=== PATIENT | male | born 1965 | race Two or more races ===

== ENCOUNTER 2024-07-26 15:18 | Emergency (ER) | payer MEDICARE, MEDICAID, SELFPAY ==
[2024-07-26 15:38] VITALS: BP 177/95; PULSE 94; RESP 18; TEMP 37.9; O2SAT 95; BMI 30.7
--- NOTE | 2024-07-26 15:45 | XR_ITS ---
Examination: CT brain head without contrast. 2-D sagittal coronal reconstructions Date and time of exam:July 26, 2024 1622 hours Comparison December 21, 2018 INDICATIONS: Ground-level fall yesterday with intravenous head, head pain CTDI: vol (mGy):54.8 DLP: (mGycm):1071 Technique: Multiple CT axial sections of the brain have been obtained, 5 mm slice thickness. Contrast has not been administered. 2-D sagittal, coronal reconstructions have been obtained Low dose protocols were performed. One or more of the following dose reduction techniques were used; automated exposure control, adjustment of the mA and/or KV according to patient size, use of iterative reconstruction technique. Findings: No significant ventricular enlargement. 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 No mass effect or midline shift Basal cisterns are not remarkable. Fourth ventricle is midline. Cranial vault intact. Impression: No interval acute hemorrhage, mass effect or midline shift
--- NOTE | 2024-07-26 15:45 | XR_ITS ---
Examination: AP lateral chest 2 views Technique: AP portable lateral chest 2 views Date and time: July 26, 2024 1706 hrs. Comparison July 21, 2018 Injury to the head 1 day ago with chest pain Findings: Mild prominence left ventricle Mild elevation right hemidiaphragm. Blunting of both costophrenic angles Pneumonia in the posterior basal segment left lower lobe obscuring detail posterior left hemidiaphragm No geovanna pulmonary edema No pneumothorax Clavicles ribs thoracic vertebral bodies appear intact Impression: No pneumothorax Pneumonia posterior basal segment left lower lobe Small bilateral pleural effusions
--- NOTE | 2024-07-26 15:45 | EKG_ITS ---
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
--- NOTE | 2024-07-26 15:45 | XR_ITS ---
Examination: CT cervical spine without contrast 2-D sagittal reconstructions 2-D coronal reconstructions 3-D reconstructions. Exam date and time:July 26, 2024 1622 hours INDICATIONS: Ground-level fall today with injury to the neck, neck pain CTDI:vol (mGy) 10.4 DLP: (mGycm) 219 Technique: Multiple 2 mm axial sections of the cervical spine have been obtained. The coronal and sagittal reconstructions have been obtained. 3-D reconstructions have been obtained. Low dose protocols were performed. One or more of the following dose reduction techniques were used; automated exposure control, adjustment of the mA and/or KV according to patient size, use of iterative reconstruction technique. Findings: Axial sections demonstrate intact base of the skull. C1 exhibit satisfactory relationship to the odontoid. No acute cervical vertebral body fracture seen. Alignment posterior spinous processes satisfactory. Impression: No acute cervical fracture.
--- NOTE | 2024-07-26 15:46 | EDRME_ITS ---
Rapid Medical Screening Exam [facility] Arrival date/time: 07/26/24 15:18 This is a 59-year-old male that comes to the emergency room with complaints of dizziness. Per patient's patient had a fall while he was at [employer] yesterday. Patient felt very dizzy and fell backwards. Patient hit the back of his head. Patient now has neck pain and head pain. Patient continues to feel dizzy today and also complaining of some chest pain. 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 As a result patientn dysarthria. Patient does take Plavix. Patient has a history of high blood pressure, diabetes, and hyperlipidemia. Patient also has depression. Patient has no focal deficits. Patient denies loss of consciousness with the fall. I have greeted and performed a focused initial assessment of this patient. Initial appropriate labs ordered at this time. A comprehensive ED assessment and evaluation of the patient and analysis of all test and completion of medical decision making process will be conducted by additional ED provider. Chief Complaint: Head Injury Time Seen by Provider: 07/26/24 15:25 Vital signs: Vital Signs Temperature 100.2 F 07/26/24 15:38 Pulse Rate 94 07/26/24 15:38 Respiratory Rate 18 07/26/24 15:38 Blood Pressure 177/95 H 07/26/24 15:38 Pulse Oximetry (%) 95 07/26/24 15:38 Oxygen Delivery Method Room Air 07/26/24 15:38
[2024-07-26 16:32] LABS: Basophils % (Auto) 0 % (0-2.5); Eosinophils % (Auto) 0 % (0-10); Hematocrit 34.3 % (41.0-53.0); Hemoglobin 11.8 g/dL (13.5-16.0); Immature Granulocytes % (Auto) 0 % (0-0); Immature Granulocytes Auto 0.01 Thou/mm3 (0.00-0.00); Lymphocytes # (Auto) 0.8 Thou/mm3 (1.0-4.8); Lymphocytes % (Auto) 13 % (10-50); Mean Corpuscular HGB Conc 34.4 g/dl (31.0-37.0); Mean Corpuscular Hemoglobin 29.1 pg (25.0-35.0); Mean Corpuscular Volume 85 fL (80-100); Monocytes # (Auto) 0.7 Thou/mm3 (0.0-0.8); Monocytes % (Auto) 11 % (0-12); Neutrophils # (Auto) 4.4 Thou/mm3 (1.8-7.7); Neutrophils % (Auto) 75 % (37-80); Nucleated Red Blood Cell % 0 /100 WBC (0); Platelet Count 259 Thou/mm3 (140-440); RDW Standard Deviation 38.9 fL (35.1-43.9); Red Blood Count 4.06 Miln/mm3 (4.50-5.90); White Blood Count 5.8 Thou/mm3 (3.8-10.6)
[2024-07-26 16:46] LABS: B-Type Natriuretic Peptide 83 pg/mL (0-100)
[2024-07-26 16:47] LABS: Alanine Aminotransferase 48 U/L (10-49); Albumin, Serum 3.8 gm/dL (3.5-5.0); Albumin/Globulin Ratio 1.3 (1.2-2.2); Alkaline Phosphatase 160 U/L (46-116); Anion Gap 9 (7-16); Aspartate Amino Transferase 39 U/L (0-34); BUN/Creatinine Ratio 12 Ratio (12-20); Bilirubin,Total 0.3 mg/dL (0.3-1.2); Blood Urea Nitrogen 22 mg/dL (9-23); Calcium 8.7 mg/dL (8.3-10.6); Calcium (Corrected) 8.9 mg/dL (8.5-10.1); Carbon Dioxide 25.4 mMol/L (20.0-31.0); Chloride 102 mMol/L (98-107); Creatinine (Component) 1.8 mg/dL (0.6-1.3); Estimated Creatinine Clearance 46.6 mL/min (>60); Glucose 153 mg/dL (74-106); Osmolality,Calculated 278 (275-295); Potassium 4.2 mMol/L (3.4-5.1); Sodium 136 mMol/L (136-145); Total Protein 6.8 gm/dL (5.7-8.2); Troponin I 0.023 ng/mL (0.0-0.045); eGFR 43 See Note
--- NOTE | 2024-07-26 19:32 | PD.EDHEAD ---
ED Head Injury RME/HPI General Chief complaint: Head Injury Stated complaint: HEAD INJURY POST FALL YESTERDAY W/ CHEST PAIN Time Seen by Provider: 07/26/24 15:25 Arrival date/time: 07/26/24 15:18 RME / HPI RME / HPI Narrative: 07/26/24 15:18 This is a 59-year-old male that comes to the emergency room with complaints of dizziness. Per patient's patient had a fall while he was at [employer] yesterday. Patient felt very dizzy and fell backwards. Patient hit the back of his head. Patient now has neck pain and head pain. Patient continues to feel dizzy today and also complaining of some chest pain. 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 As a result patientn dysarthria. Patient does take Plavix. Patient has a history of high blood pressure, diabetes, and hyperlipidemia. Patient also has depression. Patient has no focal deficits. Patient denies loss of consciousness with the fall. I have greeted and performed a focused initial assessment of this patient. Initial appropriate labs ordered at this time. A comprehensive ED assessment and evaluation of the patient and analysis of all test and completion of medical decision making process will be conducted by additional ED provider. Dr. Abreu?s Main ED Evaluation: 59yo male with a history of CVA, HTN, HLD, DM presents to the ED for a chief complaint of a head injury. Patient states he was walking with his cane yesterday, reporting he felt dizzy and fell backwards, hitting his head on a chair. Patient denies any loss of consciousness. Patient reports having lower back pain. He denies any neck pain, chest pain, abdominal pain, extremity pain or any other associated symptoms. NKA. Patient is on Plavix. Related Data Home Medications ?Medication ?Instructions ?Recorded ?Confirmed clopidogrel 75 mg tablet (Plavix) 75 mg PO QDAY 09/02/18 07/19/23 sitagliptin phos 100 mg-metformin 100 - 1,000 mg PO QDAY 09/02/18 07/19/23 ER 1,000 mg tablet,extend rel 24h mp (Janumet XR) sertraline 25 mg tablet (Zoloft) 12.5 mg PO QDAY 11/07/18 07/19/23 atorvastatin 80 mg tablet 80 mg PO QDAY 12/22/18 07/19/23 dapagliflozin propanediol 5 mg mg 07/19/23 tablet (Farxiga) losartan 100 mg tablet 100 mg PO QDAY 07/19/23 07/19/23 metoprolol succinate 25 mg capsule 25 mg PO QDAY 07/19/23 07/19/23 sprinkle, ext. release 24 hr triamterene 75 1 tab PO QDAY 07/19/23 07/19/23 mg-hydrochlorothiazide 50 mg tablet Previous Rx's ?Medication ?Instructions ?Recorded aspirin 81 mg tablet,delayed 81 mg PO QDAY #30 tabs 11/03/18 release (Aspir-Low) acetaminophen 500 mg capsule 1,000 mg (2 x 500 mg) PO Q6H PRN 07/26/24 pain #30 caps Allergies Allergy/AdvReac Type Severity Reaction Status Date / Time No Known Allergies Allergy Verified 07/26/24 15:21 Review of Systems Review of Systems Systems Reviewed: All systems reviewed, normal except as documented Past Medical History Past Medical History NEUROLOGIC: Positive Neurological Disorders and Cerebrovascular Accident (X4 . WALKS WITH CANE, SLURRED SPEECH); Negative Seizures CARDIAC: Positive Cardiac Disorders, Hypercholesterolemia and Hypertension; Negative Congestive Heart Failure RESPIRATORY: Negative Chronic Obstructive Pulmonary Disease (COPD) GASTROINTESTINAL: Negative Gastrointestinal Disorders GENITOURINARY: Negative Genitourinary Disorders or Renal Disease MUSCULOSKELETAL: Positive Musculoskeletal Disorders (WALKS WITH CANE DUE TO CVA) ENDOCRINE: Positive Endocrine Disorders and Diabetes Mellitus Type 2; Negative Diabetes Mellitus Type 1 HEMATOLOGIC: Negative Blood Disorders PSYCHO/SOCIAL: Positive Depression OTHER HISTORY: Negative Falls (USES CANE), Blood Transfusions, Anesthesia Reactions, MRSA, Chicken Pox (UNKNOWN), Clostridium Difficile or Cancer Surgical History SURGICAL: Positive Abdominal Surgery Social History SMOKING STATUS: Never smoker SECOND HAND EXPOSURE: No SUBSTANCE USE: does not use ED Exam Narrative Physical exam: GENERAL APPEARANCE: alert and oriented x 4, well-developed, well-nourished, no acute distress VITALS: All vitals were reviewed and the pulse ox is 95% on room air, which is normal according to my interpretation. HEENT: Normocephalic, atraumatic; pupils equal, round, reactive to light; EOMI; mucous membranes pink, moist; oropharynx clear NECK: Supple LUNGS: CTABL; no wheezes, no rales, no rhonchi HEART: Regular rate, regular rhythm; normal S1, S2; no murmurs ABDOMEN: non distended; normal BS; soft, no tenderness, no guarding, no rebound; no masses, no organomegaly, no hernia BACK: no CVA tenderness EXTREMITIES: atraumatic; no edema NEUROLOGIC: awake; alert and oriented x4; cranial nerves II-XII grossly intact; left-sided facial droop, left arm paralysis PSYCHIATRIC: appropriate mood and affect SKIN: warm, dry, normal color; no rashes Course Course Course Narrative: CXR is ordered to r/o pneumothorax. Quality Measures none Orders Category Date Time Status EKG (ED ONLY) *Do not use* NOW Care 07/26/24 15:[address] cervical spine wo con Stat Exams 07/26/24 15:[address] head/brain wo con Stat Exams 07/26/24 15:45 Completed EKG (ED Only) Stat Exams 07/26/24 15:45 Draft XR chest 2V Stat Exams 07/26/24 15:45 Completed BNP [B-Type Natriuretic Peptide] Stat Lab 07/26/24 16:08 Completed CBC Stat Lab 07/26/24 16:08 Completed Comprehensive Metabolic Panel Stat Lab 07/26/24 16:08 Completed Troponin I Stat Lab 07/26/24 16:08 Completed Vital Signs Vital signs: Vital Signs Temperature 100.2 F 07/26/24 15:38 Pulse Rate 94 07/26/24 15:38 Respiratory Rate 18 07/26/24 15:38 Blood Pressure 177/95 H 07/26/24 15:38 Pulse Oximetry (%) 95 07/26/24 15:38 Oxygen Delivery Method Room Air 07/26/24 15:38 Head Injury MDM Narrative MDM Narrative:: Scribe Attestation: 07/26/24 Janki Gonzáles am scribing for and in the presence of Dr. Abreu. Patient data External records reviewed:: [facility] previous records (Per chart review, patient has no relevant previous ED visits.) Clinical information provided by:: patient Social determinants that could affect healthcare access:: none Patient has the following chronic illnesses:: DM, HTN, HLD How is presenting disease/condition affected by chronic disease/condition?: uneffected by Evaluation data The following diagnostics were reviewed and interpreted by me:: lab results, radiology exam(s) and EKG tracing(s) Lab and/or radiology exams considered but not ordered:: none Interpretation Summary: CBC is normal, Creatinine is 1.8, BNP is normal, Troponin is normal, according to my interpretation. CXR shows an elevated right hemidiaphragm, normal cardiac silhouette, no infiltrates, according to my interpretation. EKG done at 1550, NSR, rate of 86, left axis deviation, no ectopy, Q waves in lead III, avF, V1, and v2, no STEMI, according to my interpretation. ------- [facility] Report Signed Patient: STEVEN MOTA. Record#: [id number] Birthdate: 1965 Age/Sex: 59 / M Location: [facility] Attending Dr: Ordering Physician: Meenu Wilks NP Date of Service: 07/26/24 Procedure(s): CT head/brain wo con Accession Number(s): [id number] cc: Driss Murray MD; NO PRIMARY/FAMILY,PHYSICIAN; Meenu Wilks NP~ Examination: CT brain head without contrast. 2-D sagittal coronal reconstructions Date and time of exam:July 26, 2024 1622 hours Comparison December 21, 2018 INDICATIONS: Ground-level fall yesterday with intravenous head, head pain CTDI: vol (mGy):54.8 DLP: (mGycm):1071 Technique: Multiple CT axial sections of the brain have been obtained, 5 mm slice thickness. Contrast has not been administered. 2-D sagittal, coronal reconstructions have been obtained Low dose protocols were performed. One or more of the following dose reduction techniques were used; automated exposure control, adjustment of the mA and/or KV according to patient size, use of iterative reconstruction technique. Findings: No significant ventricular enlargement. 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 No mass effect or midline shift Basal cisterns are not remarkable. Fourth ventricle is midline. Cranial vault intact. Impression: No interval acute hemorrhage, mass effect or midline shift Dictated By: Driss Murray MD Signed By: <Electronically signed by Driss Murray MD in OV> 07/26/24 1479 [facility] Report Signed Patient: STEVEN MOTA Record#: [id number] Birthdate: 1965 Age/Sex: 59 / M Location: [facility] Attending Dr: Ordering Physician: Meenu Wilks NP Date of Service: 07/26/24 Procedure(s): CT cervical spine wo con Accession Number(s): [id number] cc: Driss Murray MD; NO PRIMARY/FAMILY,PHYSICIAN; Meenu Wilks NP~ Examination: CT cervical spine without contrast 2-D sagittal reconstructions 2-D coronal reconstructions 3-D reconstructions. Exam date and time:July 26, 2024 1622 hours INDICATIONS: Ground-level fall today with injury to the neck, neck pain CTDI:vol (mGy) 10.4 DLP: (mGycm) 219 Technique: Multiple 2 mm axial sections of the cervical spine have been obtained. The coronal and sagittal reconstructions have been obtained. 3-D reconstructions have been obtained. Low dose protocols were performed. One or more of the following dose reduction techniques were used; automated exposure control, adjustment of the mA and/or KV according to patient size, use of iterative reconstruction technique. Findings: Axial sections demonstrate intact base of the skull. C1 exhibit satisfactory relationship to the odontoid. No acute cervical vertebral body fracture seen. Alignment posterior spinous processes satisfactory. Impression: No acute cervical fracture. Dictated By: Driss Murray MD Signed By: <Electronically signed by Driss Murray MD in [place]> 07/26/24 2220 Medications / Prescriptions Medications or Prescriptions considered but not ordered:: none Medication administrations:: see above Consultations Consultation(s) initiated? (list below): No Diagnosis Differential diagnosis head injury: subdural hematoma and other (skull fracture, epidural hematoma, traumatic hemorrhage, parenchymal bleed) Most likely diagnosis given after review of the tests above:: see clinical impression below Admission Indicated Admission indicated?: not indicated Explain why admission is indicated or not indicated:: Admission is not indicated at this time. Patient referred to Dr. Murrieta, our internal medicine nurse on-call, due to his creatinine being 1.8. Admission Request Was there a request for admission?: No Disposition Plan Disposition Plan: Discharge Discharge Attestation Discharge Attestation: The patient and all family members were given an opportunity to ask questions and understood the discharge instructions. Discharge instructions specifically effects, indications for sooner follow up or return to the emergency department, and the expected course of current diagnosis. Patient condition: Stable Discharge Plan Plan Patient Disposition: HOME (Self Care) Discharge Disposition comment: Stable for discharge home Patient condition on transfer: Stable Prescriptions/Referrals Prescriptions/Med Rec: New acetaminophen 500 mg capsule 1,000 mg PO Q6H PRN (Reason: pain) Qty: 30 0RF No Action sertraline [Zoloft] 25 mg Tablet 12.5 mg PO QDAY clopidogrel [Plavix] 75 mg Tablet 75 mg PO QDAY Janumet XR 100-1,000 mg Tablet, Er Multiphase 24 Hr 100 - 1,000 mg PO QDAY aspirin [Aspir-Low] 81 mg Tablet,Delayed Release (Dr/Ec) 81 mg PO QDAY Qty: 30 0RF atorvastatin 80 mg Tablet 80 mg PO QDAY triamterene-hydrochlorothiazid 75-50 mg Tablet 1 tab PO QDAY losartan 100 mg Tablet 100 mg PO QDAY dapagliflozin propanediol [Farxiga] 5 mg Tablet metoprolol succinate 25 mg Capsule,Sprinkle,Er 24hr 25 mg PO QDAY Referrals: Lisseth Murrieta MD [Physician] - In 1 week Problem List Clinical Impression: Abnormal blood creatinine level, Contusion of face, scalp and neck Patient/Caregiver Discharge Instructions Discharge Activity: activity as tolerated Education Materials: Monitoring Kidney Health, ED Scalp Contusion, ED Head Injury (Adult) Additional Instructions: Please return to the emergency department if you have any worsening or any further medical problems and we will help you. Otherwise you should follow-up with your primary care doctor within the next several days I have given you the information for Dr Murrieta. She is a internal medicine nurse which is a specialist with kidneys. You should give her office a call and make an appointment for a follow-up within the next several days. Your creatinine today is 1.8. The last time you had a creatinine measured was several years ago. You should see Dr Murrieta and make sure that your kidneys are healthy and not worsening Print Language: [place] Stand Alone Forms: [employer]omy Award Info., Patient Portal Info Letter
[2024-07-26 19:33] VITALS: BP 211/93; BP 214/104; PULSE 79; RESP 20; TEMP 36.9; O2SAT 97
[2024-07-26] MEDS: ACETAMINOPHEN 500 MG TABLET 1000 MG PO (19:50)
[2024-07-26 19:53] VITALS: BP 176/86; PULSE 79; RESP 18; TEMP 37.1; O2SAT 98
== END 2024-07-26 19:55 | disposition home or self-care (01) ==
PROVIDERS: Nurse Practitioner Family; Emergency Provider Emergency Medicine
DX: S00.83XA Contusion of other part of head, initial encounter (principal); W19.XXXA Unspecified fall, initial encounter; R07.9 Chest pain, unspecified; E11.9 Type 2 diabetes mellitus without complications; E78.5 Hyperlipidemia, unspecified; F32.A Depression, unspecified; M54.2 Cervicalgia; R42 Dizziness and giddiness
CPT/HCPCS: 36415; 70450; 71046; 72125; 80053; 83880; 84484; 85025; 93005; 99284; A9270

== ENCOUNTER 2024-11-24 12:55 | Day surgery (SDC) | payer MEDICARE, MEDICAID, SELFPAY ==
[2024-11-21 15:55] VITALS: BMI 28.8
[2024-11-24] VITALS (11 sets, daily range): BP systolic 156–218; BP diastolic 73–115; PULSE 56–82; RESP 14–19; TEMP 36.4–36.6; O2SAT 94–100; BMI 25.4
[2024-11-24] MEDS: BENZOCAINE 20% (Hurricaine) SPRAY 1 DOSE TOP (14:05)
[2024-11-24] MEDS: fentaNYL CIT INJ 50 mCg/ML AMP 2ML (ASD USE ONLY) IVP (14:11)
[2024-11-24] MEDS: hydrALAZINE INJ 20 MG/ML VIAL 10 MG IVP (14:11)
[2024-11-24] MEDS: MIDAZOLAM INJ 1 MG/ML VIAL 2 ML (ASD USE ONLY) 2 MG IVP (14:25)
== END 2024-11-24 15:35 | disposition home or self-care (01) ==
PROVIDERS: PCP Specialist; Referring Provider Specialist; Visit Provider Specialist
PROC: 0DBE8ZX Excision of Large Intestine, Via Natural or Artificial Opening Endoscopic, Diagnostic (ICD-10-PCS; CPT 45380; principal; 2024-11-24 14:30)
PROC: (CPT 43239; 2024-11-24 14:30)
DX: K64.9 Unspecified hemorrhoids (principal); D62 Acute posthemorrhagic anemia; K57.30 Diverticulosis of large intestine without perforation or abscess without bleeding; I10 Essential (primary) hypertension; E78.5 Hyperlipidemia, unspecified; E11.9 Type 2 diabetes mellitus without complications; Z79.899 Other long term (current) drug therapy; Z79.82 Long term (current) use of aspirin; Z79.02 Long term (current) use of antithrombotics/antiplatelets; Z79.84 Long term (current) use of oral hypoglycemic drugs
CPT/HCPCS: 45378; A4649; J0360; J1200; J2250; J3010; A9270